=== PATIENT | male | born 1965 | race Caucasian/White ===

== ENCOUNTER → 2018-02-14 | Outpatient (CLI) | payer OTHER ==
[~2018-02-14] MED LIST: CLR10 PO; FLUT0.15 NAE; MULTTAB58 PO; PRAV10TA39 PO; PROB1TAB16 PO
--- NOTE | 2018-02-14 11:04 | DIAGNOSTIC IMAGING REPORT ---
THORACIC SPINE 3 VIEWS ROUTINE CLINICAL HISTORY: 52 years-old Male presenting with MID BACK PAIN,BONY,T3-5. TECHNIQUE: 3 views of the thoracic spine were obtained. COMPARISON: None. FINDINGS: No scoliosis. Normal thoracic kyphosis. Normal cervical lordosis. The upper thoracic spine is suboptimally evaluated due to overlapping osseous structures. Allowing for this, no evidence of vertebral body height loss. Normal alignment. Intervertebral disc heights preserved. No radiographic evidence of osseous neural foraminal narrowing. IMPRESSION: 1. No radiographic evidence of acute osseous injury or advanced degenerative change. 2. Suboptimal evaluation of the upper thoracic spine due to overlapping osseous structures. If there is continuing clinical concern for an abnormality at T3-T5, cross-sectional imaging could be obtained. Electronically signed by: Mikey Loyd M.D. 02/14/2018 11:03 AM Dictated Date/Time: 02/14/2018 11:01 AM
== END | disposition home or self-care (01) ==
LOC: C.RAD1850 10:45
PROVIDERS: ATTEND Family Medicine
DX: M54.6 Pain in thoracic spine (principal)